=== PATIENT | male | born 1990 | race Two or more races ===

== ENCOUNTER 2019-05-19 08:16 | Emergency (ER) | payer OTHER ==
[2019-05-19] MEDS ORDERED: ACETAMINOPHEN ES 500 MG TABLET ONE (08:46)
[2019-05-19] MEDS ORDERED: ACETAMINOPHEN ES 500 MG TABLET PO ONE (09:00)
[2019-05-19] MEDS ORDERED: DIVALPROEX SODIUM 500 MG TABLET.DR PO ONE ×2 (09:30→09:32)
[2019-05-19] MEDS ORDERED: ONDANSETRON 4 MG TAB.RAPDIS ONE (09:32)
[2019-05-19] MEDS ORDERED: ONDANSETRON 4 MG TAB.RAPDIS PO ONE (10:00)
== END 2019-05-19 10:06 | disposition home or self-care (01) ==
DX: G40.909 Epilepsy, unspecified, not intractable, without status epilepticus (principal); R94.31 Abnormal electrocardiogram [ECG] [EKG]; Z88.8 Allergy status to other drugs, medicaments and biological substances
CPT/HCPCS: 36415; 70450; 80164; 93005; 99284; Q0162

== ENCOUNTER 2021-08-07 15:16 | Emergency (ER) | payer OTHER ==
[~2021-08-07] VITALS: Ht 160 cm; Wt 72.6 kg
--- NOTE | 2021-08-07 15:32 | NUR ---
TO ER BED 10, [facility], WITNESSED SEIZURE. +INCONTENENCE. NO OBVIOUS TRAUMA. AAOX3, BREATHING EVEN AND NON LABORED, CONNECTED TO MONITOR, AWAITING MD ORDERS
--- NOTE | 2021-08-07 16:00 | NUR ---
URINE COLLECTED AND SENT TO LAB
[2021-08-07 16:16] LABS: BASOPHILS % (AUTO) 0.1 % (0.0-2.0); EOSINOPHILS % (AUTO) 0.1 % (0.0-6.0); HEMATOCRIT 48 % (39-51); HEMOGLOBIN 16.6 g/dL (13.5-17.5); LYMPHOCYTES # (AUTO) 0.7 K/uL (0.8-4.8); LYMPHOCYTES % (AUTO) 7.6 % (20.0-44.0); MEAN CORPUSCULAR HGB CONC 34 g/dl (31.0-36.0); MEAN CORPUSCULAR VOLUME 90 fL (80-96); MONOCYTES # (AUTO) 0.3 K/uL (0.1-1.30); MONOCYTES % (AUTO) 3.2 % (2.0-12.0); NEUTROPHILS # (AUTO) 8.4 K/uL (1.8-8.9); PLATELET COUNT (AUTO) 201 K/uL (150-450); RED BLOOD CELL COUNT(AUTO) 5.39 MIL/uL (4.5-6.0); WHITE BLOOD COUNT (AUTO) 9.4 K/uL (4.3-11.0)
[2021-08-07 16:28] LABS: CALCIUM, SERUM 8.9 mg/dL (8.5-10.1); CARBON DIOXIDE 26 mmol/L (21-32); CHLORIDE 104 mmol/L (98-107); CREATININE 1.1 mg/dL (0.6-1.3); GLUCOSE 97 mg/dL (74-106); POTASSIUM 3.8 mmol/L (3.5-5.1); SODIUM SERUM 140 mmol/L (136-145); UREA NITROGEN, BLOOD 13 mg/dL (7-18)
[2021-08-07 16:34] LABS: ALANINE AMINOTRANSFERASE 23 U/L (12-78); ALBUMIN 4.2 g/dL (3.4-5.0); ALKALINE PHOSPHATASE 69 U/L (46-116); ASPARTATE AMINOTRANSFERASE 18 U/L (15-37); BILIRUBIN,DIRECT 0.1 mg/dL (0.0-0.2); BILIRUBIN,TOTAL 0.3 mg/dL (0.2-1.0); TOTAL PROTEIN, SERUM 8.5 g/dL (6.4-8.2)
[2021-08-07 16:35] LABS: ALCOHOL, BLOOD < 3 mg/dL (0-0)
--- NOTE | 2021-08-07 18:48 | NUR ---
IV removed. Catheter intact and site benign. Pressure and 4x4 applied to site. No bleeding noted.Patient discharged to home in stable condition. Written and verbal after care instructions given. Patient verbalizes understanding of instruction.
[2021-08-07 18:49] VITALS: BP 139/88
== END 2021-08-07 18:49 | disposition home or self-care (01) ==
LOC: ER 16:08
DX: G40.909 Epilepsy, unspecified, not intractable, without status epilepticus (principal); Z88.8 Allergy status to other drugs, medicaments and biological substances; R94.31 Abnormal electrocardiogram [ECG] [EKG]
CPT/HCPCS: 36415; 80048-TC; 80076-TC; 85025-TC; G0480

== ENCOUNTER 2021-08-24 18:01 | Emergency (ER) | payer OTHER ==
[~2021-08-24] VITALS: Ht 160 cm; Wt 79.4 kg
--- NOTE | 2021-08-24 18:09 | NUR ---
BIB SELF C/O R FOOT PAIN "I ACCIDENTALLY STEP ON THE NAIL AT WORK". PT A/OX4. TOLERATING R/A WELL. WITH NO SOB.
[2021-08-24] MEDS ORDERED: BACITRACIN ZINC OINT PACKET 1 EA PACKET TP ONE ×2 (18:24→18:30)
[2021-08-24] MEDS ORDERED: AMOX/CLAVULANATE 875 MG TABLET ONE (18:24)
[2021-08-24] MEDS ORDERED: TDAP [DIPH/PERTUSSIS/TET] 0.5 ML VIAL IM ONE ×2 (18:25→18:30)
[2021-08-24] MEDS ORDERED: LEVOFLOXACIN (500MG) 500 MG TABLET ONE (18:28)
[2021-08-24] MEDS ORDERED: LEVO500T90 PO (18:29)
[2021-08-24] MEDS ORDERED: AMOX/CLAVULANATE 875 MG TABLET PO ONE (18:30)
[2021-08-24] MEDS ORDERED: LEVOFLOXACIN (250MG) 250 MG TABLET PO ONE (18:30)
--- NOTE | 2021-08-24 18:40 | NUR ---
WOUND DRESSING DONE BY DRAWING MACHINE OPERATOR
[2021-08-24 18:45] VITALS: BP 100/53
--- NOTE | 2021-08-24 18:50 | NUR ---
Patient discharged to home in stable condition. Written and verbal after care instructions given. Patient verbalizes understanding of instruction.
== END 2021-08-24 18:50 | disposition home or self-care (01) ==
LOC: ER 18:26
DX: S91.331A Puncture wound without foreign body, right foot, initial encounter (principal); G40.909 Epilepsy, unspecified, not intractable, without status epilepticus; F17.200 Nicotine dependence, unspecified, uncomplicated; Z88.8 Allergy status to other drugs, medicaments and biological substances; W22.8XXA Striking against or struck by other objects, initial encounter; Y93.89 Activity, other specified; Y92.89 Other specified places as the place of occurrence of the external cause; Y99.8 Other external cause status
CPT/HCPCS: 90715

== ENCOUNTER 2021-08-27 18:57 | Emergency (ER) | payer OTHER ==
[~2021-08-27] VITALS: Ht 172.7 cm; Wt 72.6 kg
[~2021-08-27 18:57] MED LIST: LEVO500T90 PO
[2021-08-27] MEDS ORDERED: LORAZEPAM INJ 2 MG/ML VIAL ONE (19:04)
--- NOTE | 2021-08-27 19:10 | NUR ---
[id number] FOR WITNESSED SEIZURE AT WORK. VERSED 5MG IVP GIVEN TRANSIT MIX OPERATOR. THE PATIENT IS RESPONSIVE TO PAINFUL STIMULI. THE PATIENT IS ON NON-REBREATHING MASK. ATTACHED TO THE MONITOR. DR OLGUIN AT THE BEDSIDE.
--- NOTE | 2021-08-27 19:17 | NUR ---
DOCUMENT RESTORER LAC #20G S/L; PATENT AND INTACT. INITIATED LAC #18G S/L; PATENT AND INTACT
--- NOTE | 2021-08-27 19:17 | NUR ---
Nevaeh jernigan in ED - 08/27/21 at 2024 by YANA CLIENT STRATEGIST LAC #18G S/L; PATENT AND INTACT. INITIATED LAC #18G S/L; PATENT AND INTACT
--- NOTE | 2021-08-27 19:18 | NUR ---
BLOOD WORK COLLECTED SENT TO LAB
[2021-08-27 19:21] LABS: BASOPHILS # (AUTO) 0.1 K/uL (0.0-0.2); BASOPHILS % (AUTO) 0.7 % (0.0-2.0); EOSINOPHILS % (AUTO) 0.2 % (0.0-6.0); HEMATOCRIT 49 % (39-51); HEMOGLOBIN 16.4 g/dL (13.5-17.5); LYMPHOCYTES # (AUTO) 4.3 K/uL (0.8-4.8); LYMPHOCYTES % (AUTO) 29.3 % (20.0-44.0); MEAN CORPUSCULAR HGB CONC 33 g/dl (31.0-36.0); MEAN CORPUSCULAR VOLUME 92 fL (80-96); MONOCYTES # (AUTO) 0.8 K/uL (0.1-1.30); MONOCYTES % (AUTO) 5.8 % (2.0-12.0); NEUTROPHILS # (AUTO) 9.4 K/uL (1.8-8.9); PLATELET COUNT (AUTO) 308 K/uL (150-450); RED BLOOD CELL COUNT(AUTO) 5.31 MIL/uL (4.5-6.0); WHITE BLOOD COUNT (AUTO) 14.7 K/uL (4.3-11.0)
--- NOTE | 2021-08-27 19:28 | NUR ---
URINE COLLECTED AND SENT TO LAB
--- NOTE | 2021-08-27 19:34 | NUR ---
TAKEN TO RADIOLOGY
[2021-08-27 19:42] LABS: CALCIUM, SERUM 8.8 mg/dL (8.5-10.1); CARBON DIOXIDE 23 mmol/L (21-32); CHLORIDE 101 mmol/L (98-107); CREATININE 1.1 mg/dL (0.6-1.3); GLUCOSE 158 mg/dL (74-106); SODIUM SERUM 140 mmol/L (136-145); UREA NITROGEN, BLOOD 15 mg/dL (7-18)
[2021-08-27 19:48] LABS: ALANINE AMINOTRANSFERASE 21 U/L (12-78); ALBUMIN 4.6 g/dL (3.4-5.0); ALCOHOL, BLOOD < 3 mg/dL (0-0); ALKALINE PHOSPHATASE 79 U/L (46-116); ASPARTATE AMINOTRANSFERASE 19 U/L (15-37); BILIRUBIN,DIRECT 0.1 mg/dL (0.0-0.2); BILIRUBIN,TOTAL 0.3 mg/dL (0.2-1.0); TOTAL PROTEIN, SERUM 9.4 g/dL (6.4-8.2)
[2021-08-27 20:09] LABS: PHENYTOIN (DILANTIN) 1.9 ug/ml (10.0-20.0); VALPROIC ACID 76 ug/mL (50-100)
--- NOTE | 2021-08-27 20:39 | NUR ---
PT NOW AWAKE A/OX2 TO SELF AND PLACE. DENIES PAIN AND DISCOMFORT AT THIS TIME. RAC #18G DISLODGED.
[2021-08-27] MEDS ORDERED: METOCLOPRAMIDE HCL 10 MG/2 ML VIAL IV ONE (23:00)
[2021-08-27] MEDS ORDERED: KETOROLAC TROMETHAMINE INJ 30 MG/ML VIAL IV ONE (23:00)
[2021-08-27] MEDS ORDERED: IV NS 0.9% 500 ML BAG IV ONE (23:00)
[2021-08-27] MEDS ORDERED: diphenhydrAMINE HCL 50 MG/ML VIAL IV ONE (23:00)
[2021-08-27] MEDS ORDERED: ACETAMINOPHEN ES 500 MG TABLET PO ONE (23:00)
--- NOTE | 2021-08-28 00:08 | NUR ---
Patient discharged to home in stable condition. Written and verbal after care instructions given. Patient verbalizes understanding of instruction.
[2021-08-28 00:11] VITALS: BP 134/72
[2021-08-28] MEDS ORDERED: LORAZEPAM INJ 2 MG/ML VIAL ONE (00:14)
--- NOTE | 2021-08-28 00:14 | NUR ---
UPON D/C PT NOTED WITH HAND TREMORS. MADE AWARE. VERBAL ORDER OF 2MG ATIVAN IVP.
--- NOTE | 2021-08-28 00:14 | NUR ---
Note delon in EDM - 08/31/21 at 2336 by BANDAR UPON D/C PT NOTED WITH TREMORS, AWARE AND GAVE VERBAL ORDER OF 2MG ATIVAN IVP. ORDERS NOTED AND CARRIED OUT.
--- NOTE | 2021-08-28 00:16 | NUR ---
IV removed. Catheter intact and site benign. Pressure and 4x4 applied to site. No bleeding noted. Pt ambulatory with a steady gait, picked up by friends
== END 2021-08-28 00:12 | disposition home or self-care (01) ==
LOC: ER 19:00
DX: G40.909 Epilepsy, unspecified, not intractable, without status epilepticus (principal); R94.31 Abnormal electrocardiogram [ECG] [EKG]; F17.200 Nicotine dependence, unspecified, uncomplicated; Z88.8 Allergy status to other drugs, medicaments and biological substances
CPT/HCPCS: 36415; 70450; 71045; 80048; 80076; 80164; 80185; 80307; 80320; 84484 ×2; 85025; 93005 ×2; 99285; J2060; G0480

== ENCOUNTER 2022-12-20 10:51 | Emergency (ER) | payer OTHER ==
[~2022-12-20] VITALS: Ht 162.6 cm; Wt 75.3 kg
--- NOTE | 2022-12-20 11:00 | NUR ---
bib brother presenting seizure aura while they are in the car. came out for wheelchair assistance. patient appears to be disoriented and twitching of the arm noted. stares blank and not responding to words but eyes are open. assisted to ER bed 3 , placed on monitor. vital signs stable. no signs and symptoms of distress. seizure precaution initiated. plan of care continues
--- NOTE | 2022-12-20 11:01 | NUR ---
addendum : patient has history of seizure according to the brother. last time was 2020. patient is taking medication but brother unable to recall at this moment.
--- NOTE | 2022-12-20 11:10 | NUR ---
blood sample obtained sent to lab
--- NOTE | 2022-12-20 11:10 | NUR ---
established iv line 20 g at left forearm
[2022-12-20] MEDS ORDERED: ONDA4TAB5 PO (12:02)
[2022-12-20 12:08] VITALS: BP 151/86
== END 2022-12-20 12:09 | disposition home or self-care (01) ==
LOC: ER 10:56
DX: G40.909 Epilepsy, unspecified, not intractable, without status epilepticus (principal); F17.200 Nicotine dependence, unspecified, uncomplicated; Z79.899 Other long term (current) drug therapy; Z88.1 Allergy status to other antibiotic agents